=== PATIENT | female | born 1995 | race Caucasian/White ===

== ENCOUNTER 2019-12-25 15:20 | Emergency (ER) | payer MEDICAID, OTHER ==
[~2019-12-25] VITALS: Ht 160 cm; Wt 66.5 kg
[2019-12-25 15:47] LABS: BASOPHILS % (AUTO) 0 % (0-10); EOSINOPHILS # (AUTO) 0.2 10^3/uL (0.0-0.3); EOSINOPHILS % (AUTO) 2 % (0-10); HEMATOCRIT 40 % (35-52); HEMOGLOBIN 13.2 G/DL (11.5-16.0); LYMPHOCYTES # (AUTO) 2.7 X 10^3 (1.0-4.0); LYMPHOCYTES % (AUTO) 36 % (12-44); MEAN CORPUSCULAR HEMOGLOBIN 31 PG (25-34); MEAN CORPUSCULAR HGB CONC 33 G/DL (32-36); MEAN CORPUSCULAR VOLUME 93 FL (80-99); MEAN PLATELET VOLUME 11.8 FL (7.4-10.4); MONOCYTES # (AUTO) 0.4 X 10^3 (0.0-1.0); MONOCYTES % (AUTO) 5 % (0-12); NEUTROPHILS # (AUTO) 4.4 X 10^3 (1.8-7.8); NEUTROPHILS % (AUTO) 57 % (42-75); PLATELET COUNT 184 10^3/uL (130-400); RED CELL DISTRIBUTION WIDTH 12.8 % (10.0-14.5); WHITE BLOOD COUNT 7.7 10^3/uL (4.3-11.0)
[2019-12-25 15:55] LABS: BILIRUBIN,URINE NEGATIVE (NEGATIVE); CLARITY,URINE CLEAR; COLOR,URINE YELLOW; GLUCOSE, URINE (UA) NEGATIVE (NEGATIVE); KETONES,URINE TRACE (NEGATIVE); LEUKOCYTE ESTERASE ,URINE NEGATIVE (NEGATIVE); NITRITE,URINE NEGATIVE (NEGATIVE); PH,URINE 5.5 (5-9); PROTEIN,URINE NEGATIVE (NEGATIVE)
[2019-12-25 15:59] LABS: ALBUMIN 4.8 GM/DL (3.2-4.5); CHLORIDE 106 MMOL/L (98-107); POTASSIUM 3.3 MMOL/L (3.6-5.0); SODIUM 140 MMOL/L (135-145)
[2019-12-25 16:01] LABS: BACTERIA,URINE TRACE /HPF
[2019-12-25 16:01] LABS: GLUCOSE 89 MG/DL (70-105)
--- NOTE | 2019-12-25 16:01 | ED Abdominal Pain ---
General Chief Complaint: Abdominal/GI Problems Stated Complaint: ABD PAIN Nursing Triage Note: Pt c/o mid to RLQ pain that began at approximately 1100 yesterday. Pt describes pain as pressure/sharp. Pt reports pain is worse with movement. Pt reports intermittent diarrhea. Sepsis Screen: No Definite Risk Source of Information: Patient Exam Limitations: No Limitations History of Present Illness Date Seen by Provider: Dec 25, 2019 Time Seen by Provider: 15:26 Initial Comments This 24-year-old young lady presents to the emergency room with complaints of right lower quadrant pain that started yesterday and has been escalating. She has had some mild diarrhea but denies any other associated symptoms such as fever, vomiting, vaginal discharge, urinary changes, etc. Pain is a little worse with walking. She denies with an LMP about one week ago. Allergies and Home Medications Allergies Coded Allergies: No Known Drug Allergies (Unverified , 12/25/19) Patient Home Medication List Home Medication List Reviewed: Yes Review of Systems Review of Systems Constitutional: no symptoms reported EENTM: No Symptoms Reported Respiratory: No Symptoms Reported Cardiovascular: No Symptoms Reported Gastrointestinal: See HPI Genitourinary: No Symptoms Reported Musculoskeletal: no symptoms reported Skin: no symptoms reported Psychiatric/Neurological: No Symptoms Reported Endocrine: No Symptoms Reported Hematologic/Lymphatic: No Symptoms Reported Past Lpoasmx-Ydnshw-Otizpu Hx Past Med/Social Hx: Reviewed Nursing Past Med/Soc Hx Patient Social History Alcohol Use: Denies Use Recreational Drug Use: Yes (marijuana) Type Used: Electronic/Vapor 2nd Hand Smoke Exposure: Yes Recent Foreign Travel: No Contact w/Someone Who Travel: No Recent Infectious Disease Expo: No Recent Hopitalizations: No Physical Abuse: No Sexual Abuse: No Mistreated: No Fear: No Seasonal Allergies Seasonal Allergies: No Past Medical History Surgeries: No Respiratory: No Cardiac: No Neurological: No : No Last Menstrual Period: Dec 18, 2019 Reproductive Disorders: No Genitourinary: No Gastrointestinal: No Musculoskeletal: No Endocrine: No HEENT: No Cancer: No Psychosocial: Yes Anxiety, Depression Integumentary: No Blood Disorders: No Physical Exam Vital Signs Vital Signs - First Documented 12/25/19 15:23 Temp 36.8 Pulse 77 Resp 20 B/P (MAP) 122/78 (93) Pulse Ox 99 O2 Delivery Room Air Capillary Refill : Less Than 3 Seconds Height/Weight/BMI Height: '" Weight: lbs. oz. 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 as tested, no motor/sensory deficits, alert, normal mood/affect, oriented x 3 Skin: normal color, warm/dry Progress/Results/Core Measures Results/Orders Lab Results Laboratory Tests Test 12/25/19 15:30 12/25/19 15:45 Range/Units White Blood Count 7.7 4.3-11.0 10^3/uL Red Blood Count 4.31 L 4.35-5.85 10^6/uL Hemoglobin 13.2 11.5-16.0 G/DL Hematocrit 40 35-52 % Mean Corpuscular Volume 93 80-99 FL Mean Corpuscular Hemoglobin 31 25-34 PG Mean Corpuscular Hemoglobin Concent 33 32-36 G/DL Red Cell Distribution Width 12.8 10.0-14.5 % Platelet Count 184 130-400 10^3/uL Mean Platelet Volume 11.8 H 7.4-10.4 FL Neutrophils (%) (Auto) 57 42-75 % Lymphocytes (%) (Auto) 36 12-44 % Monocytes (%) (Auto) 5 0-12 % Eosinophils (%) (Auto) 2 0-10 % Basophils (%) (Auto) 0 0-10 % Neutrophils # (Auto) 4.4 1.8-7.8 X 10^3 Lymphocytes # (Auto) 2.7 1.0-4.0 X 10^3 Monocytes # (Auto) 0.4 0.0-1.0 X 10^3 Eosinophils # (Auto) 0.2 0.0-0.3 10^3/uL Basophils # (Auto) 0.0 0.0-0.1 10^3/uL Sodium Level 140 135-145 MMOL/L Potassium Level 3.3 L 3.6-5.0 MMOL/L Chloride Level 106 98-107 MMOL/L Carbon Dioxide Level 22 21-32 MMOL/L Anion Gap 12 5-14 MMOL/L Blood Urea Nitrogen 8 7-18 MG/DL Creatinine 0.94 0.60-1.30 MG/DL Estimat Glomerular Filtration Rate > 60 BUN/Creatinine Ratio 9 Glucose Level 89 70-105 MG/DL Calcium Level 9.0 8.5-10.1 MG/DL Corrected Calcium 8.5-10.1 MG/DL Total Bilirubin 0.5 0.1-1.0 MG/DL Aspartate Amino Transf (AST/SGOT) 18 5-34 U/L Alanine Aminotransferase (ALT/SGPT) 7 0-55 U/L Alkaline Phosphatase 66 40-136 U/L C-Reactive Protein High Sensitivity 2.55 H 0.00-0.50 MG/DL Total Protein 7.9 6.4-8.2 GM/DL Albumin 4.8 H 3.2-4.5 GM/DL Serum Test, Qualitative NEGATIVE NEGATIVE Urine Color YELLOW Urine Clarity CLEAR Urine pH 5.5 5-9 Urine Specific [place] 1.025 H 1.016-1.022 Urine Protein NEGATIVE NEGATIVE Urine Glucose (UA) NEGATIVE NEGATIVE Urine Ketones TRACE H NEGATIVE Urine Nitrite NEGATIVE NEGATIVE Urine Bilirubin NEGATIVE NEGATIVE Urine Urobilinogen 0.2 < = 1.0 MG/DL Urine Leukocyte Esterase NEGATIVE NEGATIVE Urine RBC (Auto) NEGATIVE NEGATIVE Urine RBC NONE /HPF Urine WBC NONE /HPF Urine Squamous Epithelial Cells 2-5 /HPF Urine Crystals NONE /LPF Urine Bacteria TRACE /HPF Urine Casts NONE /LPF Urine Mucus NEGATIVE /LPF Urine Culture Indicated NO My Orders Orders - JAMIE LEWIS MD Cbc With Automated Diff (12/25/19 15:23) Comprehensive Metabolic Panel (12/25/19 15:23) Hs C Reactive Protein (12/25/19 15:23) Hcg,Qualitative Serum (12/25/19 15:23) Ua Culture If Indicated (12/25/19 15:23) Ed Iv/Invasive Line Start (12/25/19 15:23) Us Non Ob Pelvis Comp/Transvag (12/25/19 15:32) Ketorolac Injection (Toradol Injection) (12/25/19 17:00) Medications Given in ED Current Medications Medications Dose Ordered Sig/Santos Route Start Time Stop Time Status Last Admin Dose Admin Ketorolac Tromethamine 15 mg ONCE ONCE IVP 12/25/19 17:00 12/25/19 17:01 DC 12/25/19 17:02 15 MG Vital Signs/I&O 12/25/19 12/25/19 15:23 17:06 Temp 36.8 36.8 Pulse 77 75 Resp 20 20 B/P (MAP) 122/78 (93) 120/80 (93) Pulse Ox 99 99 O2 Delivery Room Air Room Air Blood Pressure Mean: 93 Progress Progress Note : Time: 16:55 Progress Note Patient's vital signs and labs were unremarkable. She had no leukocytosis and the lymphocytes were predominant. This would suggest viral illness. CRP was low. I discussed ultrasound results with the patient. There were no significant findings. I'm recommending against CT scan at this time to avoid radiation exposure since suspicion for appendicitis is now low. Patient was given strict return precautions should she develop worsening symptoms that could be attributed to appendicitis. Diagnostic Imaging Diagonstic Imaging: Ultrasound Plain Films/CT/US/NM/MRI: pelvis Comments Pelvic ultrasound discussed with the diamond powder technician and report reviewed. See report below: NAME: JEAN PAREDES [facility] REC#: [id number] PT STATUS: REG ER : 1995 PHYSICIAN: JAMIE LEWIS MD ADMIT DATE: 12/25/19/ER Draft Date of Exam:12/25/19 US NON OB PELVIS COMP/TRANSVAG PROCEDURE: US Non-ob pelvis comp/trans. INDICATION: Right lower quadrant pain x1 day. TECHNIQUE: Multiple real time carroll scale sonographic images were obtained of the pelvis transabdominally and endovaginally. CORRELATION STUDY: None FINDINGS: UTERUS: 6.1 x 2.7 x 3.5 cm. The uterus appears unremarkable. ENDOMETRIUM: 5 mm. The endometrium appearing unremarkable. RIGHT OVARY: 3.7 x 1.8 x 2.4 cm Small hypoechoic area likely cystic area 11 x 9 x 8 mm in the right adnexa, nonspecific. Additional cysts and/or follicles in the right ovary. Blood flow to the right ovary. LEFT OVARY: 3.5 x 1.6 x 1.8 cm Small cysts and/or follicles in left ovary. No concerning mass. Normal blood flow. No significant free pelvic fluid. IMPRESSION: 1. Nonspecific small cystic area in the right adnexa. May be associated right ovarian cyst. Additional fluid collection is not excluded but is likely of no significance. If symptoms persist, consideration for CT imaging would be recommended. Dictated on workstation # [id number] Dict: 12/25/19 1646 Trans: 12/25/19 165 [facility] [id number] Interpreted by: VENICE SANDOVAL DO Departure Impression Primary Impression: Right lower quadrant pain Disposition: HOME, SELF-CARE Condition: Stable Departure-Patient Inst. Decision time for Depature: 16:53 Referrals: NO,LOCAL PHYSICIAN (PCP/Family) Primary Care Physician Patient Instructions: Appendicitis in Adults, Severe Abdominal Pain, Adult (DC) Add. Discharge Instructions: Adhere to a clear liquid diet for the next 24 hours. For pain you may take ibuprofen up to 600 mg every 6 hours as needed and/or Tylenol (acetaminophen) up to 1000 mg every 6 hours. Appendicitis was not completely ruled out with your visit today but is less of a suspicion based on your lab work. If you develop additional symptoms of appendicitis or worsening right lower quadrant pain, please return to the emergency room for further evaluation. Additional symptoms of appendicitis include fever, vomiting, and intensifying right lower quadrant pain. All discharge instructions reviewed with patient and/or family. Voiced understanding. JAMIE LEWIS MD Dec 25, 2019 16:01
[2019-12-25 16:02] LABS: TOTAL PROTEIN 7.9 GM/DL (6.4-8.2)
[2019-12-25 16:03] LABS: BILIRUBIN,TOTAL 0.5 MG/DL (0.1-1.0); CARBON DIOXIDE 22 MMOL/L (21-32)
[2019-12-25 16:05] LABS: ALKALINE PHOSPHATASE 66 U/L (40-136); CREATININE SERUM 0.94 MG/DL (0.60-1.30); GFR ESTIMATED > 60
[2019-12-25 16:06] LABS: BUN/CREATININE RATIO 9
[2019-12-25 16:08] LABS: ALANINE AMINOTRANSFERASE 7 U/L (0-55)
--- NOTE | 2019-12-25 16:58 | Diagnostic Imaging Report ---
PROCEDURE: US Non-ob pelvis comp/trans. INDICATION: Right lower quadrant pain x1 day. TECHNIQUE: Multiple real time carroll scale sonographic images were obtained of the pelvis transabdominally and endovaginally. CORRELATION STUDY: None FINDINGS: UTERUS: 6.1 x 2.7 x 3.5 cm. The uterus appears unremarkable. ENDOMETRIUM: 5 mm. The endometrium appearing unremarkable. RIGHT OVARY: 3.7 x 1.8 x 2.4 cm Small hypoechoic area likely cystic area 11 x 9 x 8 mm in the right adnexa, nonspecific. Additional cysts and/or follicles in the right ovary. Blood flow to the right ovary. LEFT OVARY: 3.5 x 1.6 x 1.8 cm Small cysts and/or follicles in left ovary. No concerning mass. Normal blood flow. No significant free pelvic fluid. IMPRESSION: 1. Nonspecific small cystic area in the right adnexa. May be associated right ovarian cyst. Additional fluid collection is not excluded but is likely of no significance. If symptoms persist, consideration for CT imaging would be recommended. Dictated by: Dictated on workstation # [id number]
[2019-12-25] MEDS ORDERED: KETOROLAC 30 MG/ML VIAL IVP ONE (17:00)
[2019-12-25 17:06] VITALS: BP 120/80
== END 2019-12-25 17:07 | disposition home or self-care (01) ==
LOC: EDUNIT# 15:20 → ER 15:22
DX: R10.31 Right lower quadrant pain (principal); R19.7 Diarrhea, unspecified; Z77.22 Contact with and (suspected) exposure to environmental tobacco smoke (acute) (chronic)
CPT/HCPCS: 36415; 76830; 76856; 80053; 81000; 84703; 85025; 86141